=== PATIENT | male | born 1985 | race Caucasian/White ===

== ENCOUNTER 2017-03-20 10:20 | Emergency (ER) | payer OTHER ==
[~2017-03-20] VITALS: Ht 198.1 cm; Wt 127.0 kg
--- NOTE | 2017-03-20 10:45 | PD ---
HPI Chief Complaint: upper back pain Time Seen by Provider: 10:45 Travel History International Travel<30 days: No Contact w/Intl Traveler<30days: No Traveled to known affect area: No History of Present Illness HPI 31-year-old male came to the emergency room with history of on and off upper back pain more to worse the left radiating up to his neck and both shoulders. Patient says that it is sometimes in a sharp zinging form and other times is just there. Currently his pain is 3 out of 10. He cannot think of any aggravating or relieving factors. He cannot think of what could have caused the pain to start. Patient does lift heavy weights in the gym. 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 His temperature in triage was 99.5 but other vital signs were within normal limits. He gets occasional shortness of breath as well. He has had these symptoms for some time now but has been more noticeable in past 2 weeks. PFSH Past Medical History Narrative Medical List of his past medical, surgical, social and family history is reviewed from the nursing note. Social History Tobacco Use: No Allergies-Medications (Allergen,Severity, Reaction): Coded Allergies: No Known Allergies (Unverified , 03/20/17) Comments List of his allergies reviewed from the nursing note. Reported Meds & Prescriptions Reported Meds & Active Scripts Active Ibuprofen 600 Mg Tab 600 Mg PO Q6H PRN Narrative Medication List of his home medications reviewed from the nursing note. Review of Systems Except as stated in HPI: all other systems reviewed are Neg Physical Exam Narrative GENERAL: Awake, alert, no obvious distress SKIN: Focused skin assessment warm/dry. No rash noticed on the back area. HEAD: Atraumatic. Normocephalic. EYES: Pupils equal and round. No scleral icterus. No injection or drainage. ENT: No nasal bleeding or discharge. Mucous membranes pink and moist. NECK: Trachea midline. No JVD. CARDIOVASCULAR: Regular rate and rhythm. No murmur appreciated. RESPIRATORY: No accessory muscle use. Clear to auscultation. Breath sounds equal bilaterally. GASTROINTESTINAL: Abdomen soft, non-tender, nondistended. Hepatic and splenic margins not palpable. MUSCULOSKELETAL: No obvious deformities. No clubbing. No cyanosis. No edema. NEUROLOGICAL: Awake and alert. No obvious cranial nerve deficits. Motor grossly within normal limits. Normal speech. PSYCHIATRIC: Appropriate mood and affect; insight and judgment normal. Data Data Last Documented VS Vital Signs Date Time Temp Pulse Resp B/P (MAP) Pulse Ox O2 Delivery O2 Flow Rate FiO2 03/20/17 12:56 16 03/20/17 12:52 65 99 03/20/17 12:10 Room Air 03/20/17 10:56 99.2 Orders Orders Electrocardiogram (03/20/17 10:54) Basic Metabolic Panel (Bmp) (03/20/17 10:54) Complete Blood Count With Diff (03/20/17 10:54) D-Dimer (03/20/17 10:54) Troponin I (03/20/17 10:54) Chest, Single Ap (03/20/17 10:54) Ecg Monitoring (03/20/17 10:54) Bilateral Bp Monitoring (03/20/17 10:54) Iv Access Insert/Monitor (03/20/17 10:54) Oximetry (03/20/17 10:54) Oxygen Administration (03/20/17 10:54) Ct Cerv Spine W/O Contrast (03/20/17 ) Ketorolac Inj (Toradol Inj) (03/20/17 12:00) Labs Laboratory Tests Test 03/20/17 11:08 White Blood Count 5.2 TH/MM3 Red Blood Count 5.04 MIL/MM3 Hemoglobin 14.5 GM/DL Hematocrit 43.2 % Mean Corpuscular Volume 85.7 FL Mean Corpuscular Hemoglobin 28.8 PG Mean Corpuscular Hemoglobin Concent 33.7 % Red Cell Distribution Width 11.7 % Platelet Count 221 TH/MM3 Mean Platelet Volume 8.4 FL Neutrophils (%) (Auto) 59.8 % Lymphocytes (%) (Auto) 31.8 % Monocytes (%) (Auto) 6.4 % Eosinophils (%) (Auto) 0.7 % Basophils (%) (Auto) 1.3 % Neutrophils # (Auto) 3.1 TH/MM3 Lymphocytes # (Auto) 1.7 TH/MM3 Monocytes # (Auto) 0.3 TH/MM3 Eosinophils # (Auto) 0.0 TH/MM3 Basophils # (Auto) 0.1 TH/MM3 CBC Comment DIFF FINAL Differential Comment D-Dimer Quantitative (PE/DVT) 0.24 MG/L FEU Blood Urea Nitrogen 13 MG/DL Creatinine 1.20 MG/DL Random Glucose 95 MG/DL Calcium Level 9.0 MG/DL Sodium Level 140 MEQ/L Potassium Level 3.8 MEQ/L Chloride Level 104 MEQ/L Carbon Dioxide Level 28.0 MEQ/L Anion Gap 8 MEQ/L Estimat Glomerular Filtration Rate 70 ML/MIN Troponin I LESS THAN 0.02 NG/ML MDM Medical Decision Making Medical Screen Exam Complete: Yes Emergency Medical Condition: Yes Medical Record Reviewed: Yes Interpretation(s) Twelve-lead EKG was reviewed by me. Normal sinus rhythm, normal axis, nonspecific ST-T wave changes, interventricular conduction delay. Heart rate of 69 bpm. Differential Diagnosis Musculoskeletal pain, cervical radiculopathy, PE Narrative Course 12:38 PM blood tests results including d-dimer are within normal limit. CT scan of the cervical spine was negative and chest x-ray was negative as per the radiologist. I will discharge him home at this point with diagnosis of musculoskeletal pain. He needs to follow up with his primary care. Procedures EKG Prior to Arrival: No Diagnosis Primary Impression: Musculoskeletal pain Referrals: Primary Care Physician 1 week Additional Instructions: Please return to the ER if the condition worsens or any other new concerns. Do not lift weights heavier than 2-3 pounds till the symptoms subside. Apply warm compresses alternating with cold compresses on the back area where the pain seems to originate. Take the medication as per the prescription direction. Follow-up with your primary care in a week. Med/Other Pt SpecificInfo: Prescription(s) given Scripts Ibuprofen (Ibuprofen) 600 Mg Tab 600 MG PO Q6H Y for Pain/Inflammation, #40 TAB 0 Refills Prov: Dominik Saucedo MD 03/20/17 Disposition: 01 DISCHARGE HOME Condition: Stable Dominik Saucedo MD Mar 20, 2017 10:45
[2017-03-20 10:56] VITALS: BP 143/83; PULSE 82; RESP 16; TEMP 99.2
[2017-03-20 11:10] VITALS: BP_SYST 137; BP_SYST 138; BP_DIAS 77; BP_DIAS 78; PULSE 75; RESP 16; O2SAT 98
[2017-03-20 11:15] LABS: AUTOMATED NEUTROPHIL # 3.1 TH/MM3 (1.8-7.7); BASOPHIL # 0.1 TH/MM3 (0-0.2); BASOPHIL % 1.3 % (0.0-2.0); EOSINOPHIL % 0.7 % (0.0-4.0); HEMATOCRIT 43.2 % (39.0-51.0); HEMO FLAGS DIFF FINAL; LYMPH % 31.8 % (9.0-44.0); LYMPHOCYTE # 1.7 TH/MM3 (1.0-4.8); MEAN CELL VOLUME 85.7 FL (80.0-100.0); MEAN CORPUSCULAR HEMOGLOBIN 28.8 PG (27.0-34.0); MEAN CORPUSCULAR HGB CONC 33.7 % (32.0-36.0); MONO % 6.4 % (0.0-8.0); NEUT % 59.8 % (16.0-70.0); PLATELET COUNT 221 TH/MM3 (150-450); RED BLOOD COUNT 5.04 MIL/MM3 (4.50-5.90); RED CELL DISTRIBUTION WIDTH 11.7 % (11.6-17.2); WHITE BLOOD COUNT 5.2 TH/MM3 (4.0-11.0)
[2017-03-20 11:24] LABS: CHLORIDE 104 MEQ/L (98-107); POTASSIUM 3.8 MEQ/L (3.5-5.1); SODIUM (NA) 140 MEQ/L (136-145)
[2017-03-20 11:29] LABS: ANION GAP 8 MEQ/L (5-15); BLOOD UREA NITROGEN 13 MG/DL (7-18)
[2017-03-20 11:32] LABS: GLOMERULAR FILTRATION RATE 70 ML/MIN (>89)
--- NOTE | 2017-03-20 11:37 | RADRPT ---
EXAM DATE/TIME: 03/20/2017 11:14 [facility] COMPARISON: No previous studies available for comparison. INDICATIONS : Upper back pain with radiculopathy down both arms. RADIATION DOSE: 26.67 CTDIvol (mGy) MEDICAL HISTORY : None SURGICAL HISTORY : None. ENCOUNTER: Initial ACUITY: 4 - 6 days PAIN SCALE: 5/10 LOCATION: neck TECHNIQUE: Volumetric scanning of the cervical spine was performed. Multiplanar reconstructions in the sagittal, coronal and oblique axial planes were performed. Using automated exposure control and adjustment o f the mA and/or kV according to patient size, radiation dose was kept as low as reasonably achievable to obtain optimal diagnostic quality images. DICOM format image data is available electronically f or review and comparison. FINDINGS: VERTEBRAE: Normal vertebral body height. ALIGNMENT: No evidence of subluxation. C2-C3: The bony spinal canal is normal in size. No evidence of disc bulge or herniation. The neural forami na are bilaterally patent. C3-C4: The bony spinal canal is normal in size. No evidence of disc bulge or herniation. The neural forami na are bilaterally patent. C4-C5: The bony spinal canal is normal in size. No evidence of disc bulge or herniation. The neural forami na are bilaterally patent. C5-C6: The bony spinal canal is normal in size. No evidence of disc bulge or herniation. The neural forami na are bilaterally patent. C6-C7: The bony spinal canal is normal in size. No evidence of disc bulge or herniation. The neural forami na are bilaterally patent. C7-T1: The bony spinal canal is normal in size. No evidence of disc bulge or herniation. The neural forami na are bilaterally patent. CONCLUSION: No acute disease. Kyaw Kline MD on March 20, 2017 at 11:32 Board Certified Radiologist. This report was verified electronically.
--- NOTE | 2017-03-20 11:42 | RADRPT ---
EXAM DATE/TIME: 03/20/2017 11:27 [facility] COMPARISON: No previous studies available for comparison. INDICATIONS : Chest pain radiating to middle of back, short of breath. MEDICAL HISTORY : None. SURGICAL HISTORY : None. ENCOUNTER: Initial ACUITY: 1 week PAIN SCORE: 4/10 LOCATION: Bilateral chest FINDINGS: A single view of the chest demonstrates the lungs to be symmetrically aerated without evidence of mas s, infiltrate or effusion. The cardiomediastinal contours are unremarkable. Osseous structures are intact. CONCLUSION: 1. No acute cardiopulmonary findings. Tu Abbasi MD on March 20, 2017 at 11:38 Board Certified Radiologist. This report was verified electronically.
[2017-03-20] MEDS ORDERED: KETOROLAC TROMETHAMINE 30 MG/ML (IVP) VIAL IV PUSH ONE (12:00)
[2017-03-20 12:10] VITALS: BP 137/72; PULSE 67; RESP 16; O2SAT 99
[2017-03-20] MEDS ORDERED: IBUP-232 PO (12:40)
[2017-03-20 12:56] VITALS: RESP 16
--- NOTE | 2017-03-20 21:01 | EKG ---
Date Performed: 03/20/2017 Time Performed: 11:09:47 PTAGE: 31 years EKG: Sinus rhythm MODERATE INTRAVENTRICULAR CONDUCTION DELAY BORDERLINE ECG NO PREVIOUS TRACING DOCTOR: Leah Kaplan Interpretating Date/Time 03/20/2017 21:00:47
== END 2017-03-20 12:56 | disposition home or self-care (01) ==
LOC: PHED 10:20
DX: M54.6 Pain in thoracic spine (principal); M54.2 Cervicalgia; R06.02 Shortness of breath; R94.31 Abnormal electrocardiogram [ECG] [EKG]
CPT/HCPCS: 71010; 72125; 80048; 84484; 85025; 85379; 93005; 96374; 99285; J1885

== ENCOUNTER 2017-07-20 14:33 | Emergency (ER) | payer OTHER ==
[~2017-07-20] VITALS: Ht 198.1 cm; Wt 125.0 kg
[~2017-07-20 14:33] MED LIST: IBUP-232 PO
[2017-07-20 14:35] VITALS: BP 143/84; PULSE 97; RESP 15; TEMP 98.6; O2SAT 100
[2017-07-20] MEDS ORDERED: SODIUM CHLOR 0.9% 1000 ML INJ 1,000 ML IV SCH (15:57)
[2017-07-20] MEDS ORDERED: SODIUM CHLORIDE 0.9% FLUSH 10 ML FLUSH IV FLUSH PRN (16:00)
[2017-07-20] MEDS ORDERED: LIDOCAINE VISCOUS 2% SOLN 15 ML UDC PO ONE (16:00)
[2017-07-20] MEDS ORDERED: ALUMINUM/MAGNESIUM/SIMETH 30 ML CUP PO ONE (16:00)
--- NOTE | 2017-07-20 17:04 | PD ---
HPI Chief Complaint: Abdominal Pain Time Seen by Provider: 15:54 Travel History International Travel<30 days: No Contact w/Intl Traveler<30days: No Traveled to known affect area: No History of Present Illness HPI The patient's 31-year-old male who has had epigastric abdominal pain and intermittent areas of paresthesias and neuropathic type pain for several weeks involving the trunk and extremities. Symptoms have progressed over the past several days leading to the ER evaluation today. Pt reports early satiety with shortness of breath shortly thereafter and epigastric pains. No fever. Patient has no family history of coronary artery disease. Patient denies drug abuse and tobacco abuse. He drinks alcohol occasionally. PFSH Past Medical History Musculoskeletal: Yes (finger surgery) Social History Alcohol Use: Yes (occ) Tobacco Use: No Allergies-Medications (Allergen,Severity, Reaction): Coded Allergies: No Known Allergies (Unverified Adverse Reaction, Unknown, 07/20/17) Reported Meds & Prescriptions Reported Meds & Active Scripts Active Ibuprofen 600 Mg Tab 600 Mg PO Q6H PRN Review of Systems Except as stated in HPI: all other systems reviewed are Neg General / Constitutional: No: Fever Cardiovascular: Positive: Chest Pain or Discomfort, No: Palpitations Respiratory: Positive: Shortness of Breath Physical Exam Narrative GENERAL: 31 yo M, WNWD, NAD SKIN: Warm and dry. HEAD: Atraumatic. Normocephalic. EYES: Pupils equal and round. No scleral icterus. No injection or drainage. ENT: No nasal bleeding or discharge. Mucous membranes pink and moist. NECK: Trachea midline. No JVD. CARDIOVASCULAR: Regular rate and rhythm. RESPIRATORY: No accessory muscle use. Clear to auscultation. Breath sounds equal bilaterally. GASTROINTESTINAL: Abdomen soft, non-tender, nondistended. Hepatic and splenic margins not palpable. MUSCULOSKELETAL: Extremities without clubbing, cyanosis, or edema. No obvious deformities. NEUROLOGICAL: Awake and alert. No obvious cranial nerve deficits. Motor grossly within normal limits. Five out of 5 muscle strength in the arms and legs. Normal speech. PSYCHIATRIC: Appropriate mood and affect; insight and judgment normal. Data Data Last Documented VS Vital Signs Date Time Temp Pulse Resp B/P (MAP) Pulse Ox O2 Delivery O2 Flow Rate FiO2 07/20/17 14:35 98.6 97 15 143/84 (103) 100 VS reviewed Orders Orders Complete Blood Count With Diff (07/20/17 15:57) Comprehensive Metabolic Panel (07/20/17 15:57) Lipase (07/20/17 15:57) Urinalysis - C+S If Indicated (07/20/17 15:57) Iv Access Insert/Monitor (07/20/17 15:57) Ecg Monitoring (07/20/17 15:57) Oximetry (07/20/17 15:57) Sodium Chlor 0.9% 1000 Ml Inj (Ns 1000 M (07/20/17 15:57) Sodium Chloride 0.9% Flush (Ns Flush) (07/20/17 16:00) Electrocardiogram (07/20/17 15:57) Al-Mag Hy-Si 40-40-4 Mg/Ml Liq (Mag-Al P (07/20/17 16:00) Lidocaine 2% Viscous (Xylocaine 2% Visco (07/20/17 16:00) MDM Medical Decision Making Medical Screen Exam Complete: Yes Emergency Medical Condition: Yes Medical Record Reviewed: Yes Differential Diagnosis GERD, anemia, electrolyte imbalance, hepatobiliary disease, atelectasis, PNA, constipation Narrative Course Work up started with labwork and imaging pending at time of dictation. Well appearing male, multiple complaints, somewhat non-specific in nature. d/w Dr Hicks who will re-assess and disposition patient appropriately. Tu Dunn MD Jul 20, 2017 17:03
[2017-07-20 17:30] LABS: AUTOMATED NEUTROPHIL # 4.3 TH/MM3 (1.8-7.7); BASOPHIL % 0.3 % (0.0-2.0); EOSINOPHIL % 0.3 % (0.0-4.0); HEMATOCRIT 42.2 % (39.0-51.0); HEMOGLOBIN 14.4 GM/DL (13.0-17.0); LYMPH % 29.2 % (9.0-44.0); LYMPHOCYTE # 1.9 TH/MM3 (1.0-4.8); MEAN CELL VOLUME 85.5 FL (80.0-100.0); MEAN CORPUSCULAR HEMOGLOBIN 29.2 PG (27.0-34.0); MEAN CORPUSCULAR HGB CONC 34.2 % (32.0-36.0); MEAN PLATELET VOLUME 9.4 FL (7.0-11.0); MONO % 5.5 % (0.0-8.0); MONOCYTE # 0.4 TH/MM3 (0-0.9); NEUT % 64.7 % (16.0-70.0); PLATELET COUNT 221 TH/MM3 (150-450); RED BLOOD COUNT 4.93 MIL/MM3 (4.50-5.90); RED CELL DISTRIBUTION WIDTH 13.3 % (11.6-17.2); WHITE BLOOD COUNT 6.6 TH/MM3 (4.0-11.0)
[2017-07-20 17:46] LABS: BILIRUBIN, URINE NEG (NEG); BLOOD, URINE NEG (NEG); GLUCOSE,URINE NEG (NEG); KETONE, URINE NEG (NEG); MUCUS URINE FEW /lpf (OCC); NITRITE,URINE NEG (NEG); PH, URINE 6.5 (5.0-8.5); URINE COLOR LIGHT-YELLOW (YELLW/STRAW); URINE LEUKOCYTE ESTERASE NEG (NEG)
[2017-07-20 17:59] LABS: ALBUMIN 4.7 GM/DL (3.4-5.0); AST (GOT) 14 U/L (15-37); BICARBONATE 27.6 MEQ/L (21.0-32.0); BLOOD UREA NITROGEN 12 MG/DL (7-18); CALCIUM 8.9 MG/DL (8.5-10.1); CHLORIDE 103 MEQ/L (98-107); CREATININE 1.17 MG/DL (0.60-1.30); GLOMERULAR FILTRATION RATE 72 ML/MIN (>89); GLUCOSE,RANDOM 90 MG/DL (74-106); LIPASE 164 U/L (73-393); SODIUM (NA) 138 MEQ/L (136-145)
[2017-07-20 18:00] LABS: ALT (GPT) 38 U/L (12-78)
[2017-07-20 18:02] LABS: ALKALINE PHOSPHATASE 54 U/L (45-117); TOTAL BILIRUBIN ADULT 0.3 MG/DL (0.2-1.0); TOTAL PROTEIN 8.1 GM/DL (6.4-8.2)
--- NOTE | 2017-07-20 18:41 | RADRPT ---
EXAM DATE/TIME: 07/20/2017 18:22 [facility] COMPARISON: CHEST SINGLE AP, March 20, 2017, 11:27. INDICATIONS : Short of breath. MEDICAL HISTORY : None. SURGICAL HISTORY : None. ENCOUNTER: Initial ACUITY: 1 day PAIN SCORE: 2/10 LOCATION: Bilateral chest FINDINGS: A single view of the chest demonstrates the lungs to be symmetrically aerated without evidence of mas s, infiltrate or effusion. The cardiomediastinal contours are unremarkable. Osseous structures are intact. CONCLUSION: No evidence of acute cardiopulmonary disease. Sathish Arroyo MD on July 20, 2017 at 18:37 Board Certified Radiologist. This report was verified electronically.
[2017-07-20 18:54] LABS: TROPONIN I LESS THAN 0.02 NG/ML (0.02-0.05)
[2017-07-20] MEDS ORDERED: IOHEXOL 350 MG/ML 10 ML VIAL (for RAD DIAG) IVCONTRAST ONE (19:07)
--- NOTE | 2017-07-20 19:30 | PD ---
Data Data Last Documented VS Vital Signs Date Time Temp Pulse Resp B/P (MAP) Pulse Ox O2 Delivery O2 Flow Rate FiO2 07/20/17 14:35 98.6 97 15 143/84 (103) 100 Orders Orders Complete Blood Count With Diff (07/20/17 15:57) Comprehensive Metabolic Panel (07/20/17 15:57) Lipase (07/20/17 15:57) Urinalysis - C+S If Indicated (07/20/17 15:57) Iv Access Insert/Monitor (07/20/17 15:57) Ecg Monitoring (07/20/17 15:57) Oximetry (07/20/17 15:57) Sodium Chlor 0.9% 1000 Ml Inj (Ns 1000 M (07/20/17 15:57) Sodium Chloride 0.9% Flush (Ns Flush) (07/20/17 16:00) Electrocardiogram (07/20/17 15:57) Al-Mag Hy-Si 40-40-4 Mg/Ml Liq (Mag-Al P (07/20/17 16:00) Lidocaine 2% Viscous (Xylocaine 2% Visco (07/20/17 16:00) Ckmb (Isoenzyme) Profile (07/20/17 17:53) Troponin I (07/20/17 17:53) Ct Abd/Pel W Iv Contrast(Rout) (07/20/17 ) Chest, Single Ap (07/20/17 ) CKMB (07/20/17 16:41) CKMB% (07/20/17 16:41) Iohexol 350 Inj (Omnipaque 350 Inj) (07/20/17 19:07) Labs Laboratory Tests Test 07/20/17 16:41 White Blood Count 6.6 TH/MM3 Red Blood Count 4.93 MIL/MM3 Hemoglobin 14.4 GM/DL Hematocrit 42.2 % Mean Corpuscular Volume 85.5 FL Mean Corpuscular Hemoglobin 29.2 PG Mean Corpuscular Hemoglobin Concent 34.2 % Red Cell Distribution Width 13.3 % Platelet Count 221 TH/MM3 Mean Platelet Volume 9.4 FL Neutrophils (%) (Auto) 64.7 % Lymphocytes (%) (Auto) 29.2 % Monocytes (%) (Auto) 5.5 % Eosinophils (%) (Auto) 0.3 % Basophils (%) (Auto) 0.3 % Neutrophils # (Auto) 4.3 TH/MM3 Lymphocytes # (Auto) 1.9 TH/MM3 Monocytes # (Auto) 0.4 TH/MM3 Eosinophils # (Auto) 0.0 TH/MM3 Basophils # (Auto) 0.0 TH/MM3 CBC Comment DIFF FINAL Differential Comment Urine Color LIGHT-YELLOW Urine Turbidity CLEAR Urine pH 6.5 Urine Specific [place] 1.007 Urine Protein NEG mg/dL Urine Glucose (UA) NEG mg/dL Urine Ketones NEG mg/dL Urine Occult Blood NEG Urine Nitrite NEG Urine Bilirubin NEG Urine Urobilinogen LESS THAN 2.0 MG/DL Urine Leukocyte Esterase NEG Urine Mucus FEW /lpf Microscopic Urinalysis Comment CULT NOT INDICATED Blood Urea Nitrogen 12 MG/DL Creatinine 1.17 MG/DL Random Glucose 90 MG/DL Total Protein 8.1 GM/DL Albumin 4.7 GM/DL Calcium Level 8.9 MG/DL Alkaline Phosphatase 54 U/L Aspartate Amino Transf (AST/SGOT) 14 U/L Alanine Aminotransferase (ALT/SGPT) 38 U/L Total Bilirubin 0.3 MG/DL Sodium Level 138 MEQ/L Potassium Level 3.8 MEQ/L Chloride Level 103 MEQ/L Carbon Dioxide Level 27.6 MEQ/L Anion Gap 7 MEQ/L Estimat Glomerular Filtration Rate 72 ML/MIN Total Creatine Kinase 165 U/L Creatine Kinase MB 1.0 NG/ML Troponin I LESS THAN 0.02 NG/ML Lipase 164 U/L [facility] Supervised Visit with [facility]: No Narrative Course The patient was initially evaluated by the previous provider and signed out to me at the beginning of my shift pending labs and disposition. See his note for further details. Briefly is a 31-year-old male who presents for evaluation of epigastric pains and paresthesias and neuropathic type symptoms over his chest and abdomen. The patient reports that the symptoms have been gone on for several months, intermittently, seemingly worse over the last couple of days. Epigastric pain is described as sharp, moderate, worse with eating. On physical exam he is resting comfortably. There is mild epigastric tenderness without peritoneal signs. Normal bowel sounds. No hernias. The rest of his physical exam is essentially unremarkable. CBC is unremarkable. CMP is unremarkable. Lipase is 164. Cardiac enzymes are negative. UA is not suggestive of UTI. EKG: Sinus, rate 66, normal axis, normal intervals, no acute ischemic abnormality. Chest x-ray shows no acute disease. CT abdomen pelvis: No acute abnormality. Patient was made aware of all findings. He is resting comfortably. He was given a GI cocktail by the previous provider and reports that it helped with his symptoms. Patient likely has gastritis or peptic ulcer disease. He will be started on Protonix. I will also give him a prescription for Bentyl. He was advised to follow-up with a primary care physician this week as well as a oil separator this week. He was informed on when to return to the emergency department. He verbalizes understanding and agreement with plan. Diagnosis Primary Impression: Epigastric abdominal pain Referrals: Whitney Stewart MD 3 days [employer] Primary Care Physician 3 days Additional Instruction: Follow-up with a primary care physician this week. Follow-up with oil separator Dr. Stewart or a gastric urologist of your choice this week. Return to the emergency department for worsening symptoms or any other concerns. Scripts Dicyclomine (Bentyl) 10 Mg Cap 10 MG PO TID Y for Bowel Management, #20 CAP 0 Refills Prov: Wero Hicks MD 07/20/17 Pantoprazole (Protonix) 40 Mg Tab 40 MG PO DAILY for Reflux, #30 TAB 2 Refills Prov: Wero Hicks MD 07/20/17 Disposition: 01 DISCHARGE HOME Condition: Stable Wero Hicks MD Jul 20, 2017 19:30
--- NOTE | 2017-07-20 19:32 | RADRPT ---
EXAM DATE/TIME: 07/20/2017 19:06 [facility] COMPARISON: No previous studies available for comparison. INDICATIONS : Abdominal pain past few weeks. IV CONTRAST: 100 cc Omnipaque 350 (iohexol) IV ORAL CONTRAST: No oral contrast ingested. RADIATION DOSE: 16.49 CTDIvol (mGy) MEDICAL HISTORY : None SURGICAL HISTORY : None. ENCOUNTER: Initial ACUITY: 2 weeks PAIN SCALE: 5/10 LOCATION: Bilateral abdomen TECHNIQUE: Volumetric scanning of the abdomen and pelvis was performed. Using automated exposure control and ad justment of the mA and/or kV according to patient size, radiation dose was kept as low as reasonably achievable to obtain optimal diagnostic quality images. DICOM format image data is available electro nically for review and comparison. FINDINGS: LOWER LUNGS: The visualized lower lungs are clear. LIVER: Homogeneous density without lesion. There is no dilation of the biliary tree. No calcified gallston es. SPLEEN: Normal size without lesion. PANCREAS: Within normal limits. KIDNEYS: Normal in size and shape. There is no mass, stone or hydronephrosis. ADRENAL GLANDS: Within normal limits. VASCULAR: There is no aortic aneurysm. BOWEL/MESENTERY: The stomach, small bowel, and colon demonstrate no acute abnormality. There is no free intraperitone al air or fluid. The appendix is well-visualized and normal. ABDOMINAL WALL: Within normal limits. RETROPERITONEUM: There is no lymphadenopathy. BLADDER: No wall thickening or mass. REPRODUCTIVE: Within normal limits. INGUINAL: There is no lymphadenopathy or hernia. MUSCULOSKELETAL: Within normal limits for patient age. CONCLUSION: No abnormality demonstrated. Sathish Arroyo MD on July 20, 2017 at 19:29 Board Certified Radiologist. This report was verified electronically.
[2017-07-20] MEDS ORDERED: DICY10 PO (19:42)
[2017-07-20] MEDS ORDERED: PROT40TA PO (19:42)
[2017-07-20] MEDS ORDERED: PANTOPRAZOLE SOD 40 MG DELAYED RELEASE TAB PO ONE (19:45)
[2017-07-20] MEDS ORDERED: DICYCLOMINE HCL 10 MG CAP PO ONE (19:45)
--- NOTE | 2017-07-21 17:38 | EKG ---
Date Performed: 07/20/2017 Time Performed: 17:06:06 PTAGE: 31 years EKG: Sinus rhythm WITH SINUS ARRHYTHMIA INCOMPLETE RIGHT BUNDLE BRANCH BLOCK BORDERLINE ECG INTERPRETATION BASED ON A DEFAULT AGE OF 38 YEARS PREVIOUS TRACING 03/20/17 @ 11.09.47 Since previous tracing, no significant change noted DOCTOR: Asif Caceres Interpretating Date/Time 07/21/2017 17:37:09
== END 2017-07-20 20:00 | disposition home or self-care (01) ==
LOC: NEPD 14:33
DX: R10.13 Epigastric pain (principal); G62.9 Polyneuropathy, unspecified; R06.02 Shortness of breath; R94.31 Abnormal electrocardiogram [ECG] [EKG]
CPT/HCPCS: 71045; 74177; 80053; 81001; 82550; 82552; 83690; 84484; 85025; 93005; 99285; J7030; Q9967

== ENCOUNTER 2017-08-13 23:33 | Emergency (ER) | payer OTHER ==
[~2017-08-13] VITALS: Ht 198.1 cm; Wt 125.8 kg
[~2017-08-13 23:33] MED LIST changes: +DICY10 PO; +PROT40TA PO
[2017-08-13 23:39] VITALS: BP 138/68; PULSE 78; RESP 18; TEMP 98.3; O2SAT 99
[2017-08-14 00:22] VITALS: BP 138/68; PULSE 78; RESP 17; TEMP 98.3; O2SAT 99
[2017-08-14 00:49] VITALS: BP 144/70
--- NOTE | 2017-08-14 01:27 | PD ---
HPI Chief Complaint: GI Complaint Time Seen by Provider: 00:40 Travel History International Travel<30 days: No Contact w/Intl Traveler<30days: No Traveled to known affect area: No History of Present Illness HPI 31-year-old male presents to the emergency department for complaint of 3 weeks or longer of intermittent epigastric discomfort and intermittent shortness of breath. Patient was evaluated approximately 3 weeks ago for same complaint and states that symptoms are persistent. Patient has not followed up with primary or GI or other providers subsequently. Patient states anti-inflammatories such as aspirin and ibuprofen help symptoms as well as proton pump. There is also some symptoms but due to persistent symptoms he is very anxious as to what might be causing his symptoms. Patient has undergone upper endoscopy in the remote past and was told that he did have some mild inflammatory changes. Patient has had no subsequent follow-up. Patient also states that intermittently he has a sharp stabbing pain in his chest. Patient states that sometimes this is worsened by activity and other times it happens at rest and at other times has not occurred with exertion or activity. Patient also states that because symptoms are persistent is making him uncomfortable and feel short of breath at times. No personal or family history of clotting disorder or autoimmune disorder connective tissue disorder and no personal or family history of premature onset heart disease hypertension dyslipidemia or diabetes. Patient does not smoke cigarettes. Patient does note drinking alcohol seems to worsen his symptoms. Patient states specifically that bourbon seems to aggravate his discomfort the most. Patient denies any known injury. Patient's had no fever no chills no vomiting no diarrhea no report of hemoptysis hematemesis coffee-ground emesis melena hematochezia. Patient rates current discomfort 1-2/10 intensity but at worst sometimes is 8/10 in intensity. Patient states laying on his stomach provide some relief. Patient does not report any weight loss or weight gain. Patient recently underwent evaluation with chest x-ray EKG and laboratory work that were all found to be in normal range and was started on proton pump inhibitor. Patient also denies any long distance travel protracted bedrest surgical procedure or lower extremity pain or swelling. [facility] Past Medical History Narrative Medical Gastritis, endoscopy, hand surgery; occasional alcohol use no tobacco use; family history negative for premature onset cardiac disease; nursing notes reviewed Medical History: Denies Significant Hx Diminished Hearing: No Musculoskeletal: Yes (finger surgery) ?: Not Past Surgical History Surgical History: No Previous Surgery Social History Alcohol Use: Yes (occ) Tobacco Use: No Substance Use: No Allergies-Medications (Allergen,Severity, Reaction): Coded Allergies: No Known Allergies (Unverified Adverse Reaction, Unknown, 07/20/17) Reported Meds & Prescriptions Reported Meds & Active Scripts Active Bentyl (Dicyclomine HCl) 10 Mg Cap 10 Mg PO TID PRN Protonix (Pantoprazole Sodium) 40 Mg Tab 40 Mg PO DAILY Ibuprofen 600 Mg Tab 600 Mg PO Q6H PRN Review of Systems Except as stated in HPI: all other systems reviewed are Neg General / Constitutional: No: Fever, Chills HENT: No: Congestion Cardiovascular: Positive: Chest Pain or Discomfort (sharp or stabbing), No: Palpitations, Diaphoresis, Syncope, Dyspnea on exertion, Edema Respiratory: Positive: Shortness of Breath (intermittent), No: Cough, Wheezing , Orthopnea, Hemoptysis, Pleuritic Pain Gastrointestinal: Positive: Abdominal Pain (epigastric), No: Nausea, Vomiting, Diarrhea Genitourinary: No: Dysuria, Flank Pain Musculoskeletal: No: Myalgias, Arthralgias, Cramping, Edema, Pain Skin: No Rash Neurologic: No: Weakness, Dizziness, Syncope, Focal Abnormalities, Coordination Problem Psychiatric: Positive: Anxiety, No: Depression, Suicidal Ideations Hematologic/Lymphatic: No: Easy Bruising Physical Exam Narrative GENERAL: Well-developed well-nourished male in no acute distress or respiratory distress; triage vital signs are found to be in normal range with room air O2 saturation 99-100% SKIN: Warm and dry. HEAD: Normocephalic. EYES: No scleral icterus. No injection or drainage. NECK: Supple, trachea midline. No JVD or lymphadenopathy. CARDIOVASCULAR: Regular rate and rhythm without murmurs, gallops, or rubs. Radial and dorsalis pedis pulses 2+ to palpation. Chest wall: Mild tenderness to direct palpation over the xiphoid and epigastrium RESPIRATORY: Breath sounds equal bilaterally. No accessory muscle use. GASTROINTESTINAL: Abdomen soft, mild reproducible epigastric tenderness without guarding or rebound, nondistended. MUSCULOSKELETAL: No cyanosis, or edema. BACK: Nontender without obvious deformity. No CVA tenderness. Data Data Last Documented VS Vital Signs Date Time Temp Pulse Resp B/P (MAP) Pulse Ox O2 Delivery O2 Flow Rate FiO2 08/14/17 00:49 62 20 144/70 (94) 97 08/14/17 00:22 98.3 Orders Orders D-Dimer (08/14/17 00:40) Ketorolac Inj (Toradol Inj) (08/14/17 01:30) Labs Laboratory Tests Test 08/14/17 00:40 D-Dimer Quantitative (PE/DVT) 0.22 MG/L FEU [facility] Medical Decision Making Medical Screen Exam Complete: Yes Emergency Medical Condition: Yes Medical Record Reviewed: Yes Interpretation(s) EKG normal sinus rhythm rate [address] elevation injury pattern or ectopy noted Review of medical records patient just underwent recent chest x-ray CBC and metabolic panel CK troponin I Differential Diagnosis GERD, hiatal hernia, atypical chest pain, costochondritis, pleurisy, gastritis, peptic ulcer disease, pancreatitis, biliary colic, PE, also consider ACS [place] Narrative Course Discussed with patient obtaining d-dimer and repeating other lab work patient desirous of avoiding unnecessary repeat of labs but is agreeable to having d- dimer performed EKG is sinus rhythm without injury and lung sounds are clear found to be in normal range D-dimer is 0.22 not elevated; BUE BP performed without significant variance Patient feels well have discussed again repeating lab work and obtaining metabolic panel cardiac enzymes CBC patient feels well at this time is desirous of following up as outpatient. At this point time patient appears stable for outpatient management suspect patient has some type of inflammatory musculoskeletal etiology epigastric/chest wall discomfort and is stable for outpatient management at this time. 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 Take it with food or antacid Follow-up with primary care provider office to schedule follow-up appointment Follow-up with GI to arrange follow-up 1 week Return to the emergency department for any concerns or change in condition Increase fluid hydration; continue to avoid alcoholic beverages Med/Other Pt SpecificInfo: No Change to Meds Disposition: 01 DISCHARGE HOME Condition: Stable Luz Elena Paula MD Aug 14, 2017 01:27
[2017-08-14] MEDS ORDERED: KETOROLAC TROMETHAMINE 30 MG/ML (IVP) VIAL IV PUSH ONE (01:30)
[2017-08-14 01:44] VITALS: BP_SYST 135; BP_SYST 136; BP_DIAS 80; BP_DIAS 94; PULSE 61; RESP 20; O2SAT 99
[2017-08-14 02:07] VITALS: BP 119/63
--- NOTE | 2017-08-14 11:04 | EKG ---
Date Performed: 08/13/2017 Time Performed: 23:43:21 PTAGE: 31 years EKG: Sinus rhythm NORMAL ECG NO PREVIOUS TRACING DOCTOR: Clement Pritchard Interpretating Date/Time 08/14/2017 10:59:05
== END 2017-08-14 02:11 | disposition home or self-care (01) ==
LOC: PHED 23:33
DX: R10.13 Epigastric pain (principal); R06.02 Shortness of breath; R07.9 Chest pain, unspecified
CPT/HCPCS: 85379; 93005; 96374; 99284; J1885

== ENCOUNTER 2017-11-26 16:09 | Emergency (ER) | payer OTHER ==
[~2017-11-26] VITALS: Ht 198.1 cm; Wt 119.0 kg
[2017-11-26 16:12] VITALS: BP 180/87; TEMP 98.6; O2SAT 100
--- NOTE | 2017-11-26 16:36 | PD ---
HPI Chief Complaint: Chest Pain Time Seen by Provider: 16:24 Travel History International Travel<30 days: No Contact w/Intl Traveler<30days: No Traveled to known affect area: No History of Present Illness HPI Patient 32-year-old male presents emergency department with intermittent chest pain on the right side of his chest, sharp, nonradiating, so she was admitted shortness of breath no dizziness no nausea no vomiting. Can identify any alleviating or exacerbating factors. No history of cancer no history of stasis no history of recent surgeries or blood clots in the past. Otherwise he feels well. He states never had this before, non-smoker no high blood pressure no high cholesterol, he has an appointment with a horticulture/floriculture teacher in 2 weeks because he has also been having some intermittent palpitations. States symptoms are mild, right side of his chest, no radiation, associated signs and symptoms in context as above. PFSH Past Medical History Diminished Hearing: No Musculoskeletal: Yes (finger surgery) Social History Alcohol Use: Yes (occ) Tobacco Use: No Substance Use: No Allergies-Medications (Allergen,Severity, Reaction): Coded Allergies: No Known Allergies (Verified Adverse Reaction, Unknown, 11/26/17) Reported Meds & Prescriptions Reported Meds & Active Scripts Active Bentyl (Dicyclomine HCl) 10 Mg Cap 10 Mg PO TID PRN Protonix (Pantoprazole Sodium) 40 Mg Tab 40 Mg PO DAILY Ibuprofen 600 Mg Tab 600 Mg PO Q6H PRN Review of Systems Except as stated in HPI: all other systems reviewed are Neg Physical Exam Narrative GENERAL: Well-developed well-built and well-nourished in no obvious distress SKIN: Focused skin assessment warm/dry. HEAD: Atraumatic. Normocephalic. EYES: Pupils equal and round. No scleral icterus. No injection or drainage. ENT: No nasal bleeding or discharge. Mucous membranes pink and moist. NECK: Trachea midline. No JVD. CARDIOVASCULAR: Regular rate and rhythm. No murmur appreciated. RESPIRATORY: No accessory muscle use. Clear to auscultation. Breath sounds equal bilaterally. GASTROINTESTINAL: Abdomen soft, non-tender, nondistended. Hepatic and splenic margins not palpable. MUSCULOSKELETAL: No obvious deformities. No clubbing. No cyanosis. No edema. No tenderness to the right side chest wall, not exacerbated by forcible exertion against resistance of the pectoralis muscles NEUROLOGICAL: Awake and alert. No obvious cranial nerve deficits. Motor grossly within normal limits. Normal speech. PSYCHIATRIC: Appropriate mood and affect; insight and judgment normal. Data Data Last Documented VS Vital Signs Date Time Temp Pulse Resp B/P (MAP) Pulse Ox O2 Delivery O2 Flow Rate FiO2 11/26/17 17:31 11/26/17 17:20 78 16 98 Room Air 11/26/17 16:12 98.6 Orders Orders Chest, Pa & Lat (11/26/17 ) Ibuprofen (Motrin) (11/26/17 16:45) Ed Discharge Order (11/26/17 17:14) MDM Medical Decision Making Medical Screen Exam Complete: Yes Emergency Medical Condition: Yes Interpretation(s) EKG shows sinus rhythm at a rate of 93, normal axis normal R-wave progression. No concerning ST segment changes. Nonspecific RSR prime pattern in V1 but intervals within normal limits. No right heart strain pattern. This is a nonischemic EKG. Differential Diagnosis Chest wall pain, atypical chest pain, ACS unlikely, [place] unlikely, PE is excluded by [place] and PERC criteria Narrative Course Patient room to the emergency department, EKG and chest x-ray are reassuring. No definitive cause of the right-sided chest pain is yet been established patient is very low risk and is very atypical features. He does have a cardiology appointment coming up in 2 weeks for history of palpitations. At this time there is no indication further workup with this patient. He is stable for discharge. Discussed return to ED criteria Diagnosis Primary Impression: Atypical chest pain Patient Instructions: Chest Pain (DC), General Instructions, Musculoskeletal Pain (ED) Disposition: 01 DISCHARGE HOME Condition: Stable Kyaw Carballo MD November 26, 2017 16:36
[2017-11-26] MEDS ORDERED: IBUPROFEN 600 MG TAB PO ONE (16:45)
--- NOTE | 2017-11-26 17:11 | RADRPT ---
EXAM DATE: 11/26/2017 5:07 PM EDT AGE/SEX: 32 years / Male INDICATIONS: Chest pain and shortness of breath for 2 weeks. CLINICAL DATA: This is the patient's initial encounter. Patient reports that signs and symptoms have been present for 2 weeks and indicates a pain score of 4/10. MEDICAL/SURGICAL HISTORY: None. None. COMPARISON: No prior [facility] exams available for comparison. FINDINGS: PA and lateral views of the chest demonstrate the lungs to be symmetrically aerated withou t evidence of mass, infiltrate or effusion. The cardiomediastinal contours are unremarkable. Osseous structures are intact. CONCLUSION: No acute intrathoracic disease. Electronically signed by: Sage Ariza MD 11/26/2017 5:09 PM EDT
[2017-11-26 17:20] VITALS: BP 127/74; PULSE 78; RESP 16; O2SAT 98
--- NOTE | 2017-11-26 20:21 | EKG ---
Date Performed: 11/26/2017 Time Performed: 16:19:33 PTAGE: 32 years EKG: Sinus rhythm INCOMPLETE RIGHT BUNDLE BRANCH BLOCK BORDERLINE ECG Compared to prior electrocardiogram, rate has in creased . PREVIOUS TRACING : 08/13/2017 23.43 DOCTOR: Raul Harp Interpretating Date/Time 11/26/2017 20:19:58
== END 2017-11-26 17:30 | disposition home or self-care (01) ==
LOC: PHED 16:09
DX: R07.89 Other chest pain (principal); I45.10 Unspecified right bundle-branch block; Z79.899 Other long term (current) drug therapy
CPT/HCPCS: 71046; 93005; 99284